=== PATIENT | female | born 1935 | race Caucasian/White ===

== ENCOUNTER 2019-12-13 13:48 | Observation (INO) ==
[2019-12-13] MEDS ORDERED: METHYLPREDNISOLONE SOD SUCC/PF 125 MG/2 ML VIAL IV ONE (16:26)
[2019-12-13] MEDS ORDERED: ENOXAPARIN SODIUM 40 MG/0.4 ML SYRG SC SCH (16:30)
--- NOTE | 2019-12-13 17:08 | HP ---
Chief Complaint - Chief Complaint Date of Service: 12/13/19 Time of Service: 17:08 Chief Complaint: COUGH AND SHORTNESS OF BREATH FOR A COUPLE OF DAYS History of Present Illness: 84 year old F with PMHX of HTN, HLD, and Hypothyroidism presents to clinic as sick visit for SOB, cough, congestion, states feeling something is heavy on her chest. PCP: Dr. Yeager. Patients SPO2: 965 on RA with audible wheezing, remaining VSS. STAT Labs, CXR, EKG and Cardiac Panel completed and Largely unremarkable. Flu Swab Negative. Administered 2 breathing treatments of Duo-Neb in clinic with minimal improvement. Patient denies any h/o of COPD or Asthma, advised patient will be admitting for Acute Exacerbation of Asthma. Medical History (Last Reviewed 12/13/19 @ 17:10 by Cesar Holley RN) Urinary bladder incontinence (Chronic) Loose stools (Acute) Nausea (Acute) Major depressive disorder (Chronic) Hypersomnolence (Acute) Bilateral sacroiliitis (Chronic) Fatigue (Chronic) Anxiety and depression (Acute) CRF (chronic renal failure) (Chronic) GFR 55 Impaired fasting glucose (Chronic) Onset Date: ~2004 Hypothyroid (Chronic) Onset Date: ~1969 Essential hypertension (Chronic) Onset Date: ~2001 Hyperlipidemia (Chronic) Onset Date: Unknown Hearing loss Onset Date: Unknown Incomplete bladder emptying Onset Date: ~2016 Sleep apnea Onset Date: ~2006 Tinnitus Onset Date: ~2003 Urge incontinence of urine Onset Date: ~2016 Atrophic vaginitis Onset Date: ~11/24/16 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 Herpes zoster Onset Date: ~01/2008 left arm History of radiation therapy Onset Date: Unknown Uterovaginal prolapse, incomplete Onset Date: ~2016 Surgical History: Surgical History (Last Reviewed 12/13/19 @ 17:10 by Cesar Holley RN) History of bladder surgery 2018 stimulator put in by dr riley History of breast biopsy Onset Date: ~1965 pt states she has had several breast biopsies History of colonoscopy Onset Date: ~2008 Peasley-diverticulosis History of surgical removal of skin lesion Onset Date: ~04/2014 scalp-Dr Koenig History of tonsillectomy Onset Date: Unknown Hx laparoscopic cholecystectomy Onset Date: ~2004 Family History: Family History (Last Reviewed 12/13/19 @ 17:10 by Cesar Holley RN) Brother Diabetes type II Father , age 55- DM, heart disease, [place] Diabetes Heart disease Myocardial infarction Mother Hypoglycemia Arthritis Social History: (Last Reviewed 12/13/19 @ 17:10 by Cesar Holley RN) Social History: Marital status: / household members: none current occupational status: retired current occupation: retired Highest education level completed: high school graduate Service: No Tobacco: Smoking Status: Never smoker Alcohol: alcohol intake: never Substance Use: substance use type: does not use Dietary Habits: caffeine: Yes caffeine comment: somedays Type: coffee Review Of Systems (GEN) - Review of Systems Generalized/Overall Review: Present: Weakness. Absent: Chills, Fever EENTM: Present: No Symptoms Reported Respiratory: Present: Cough, Shortness of Breath, Stridor. Absent: Orthopnea, Wheezing Cardiac: Absent: Chest Pain, Edema, Palpitations, Syncope Abdominal: Absent: Nausea, Vomiting, Abdominal Pain Genitourinary: Present: No Symptoms Reported Musculoskeletal: Absent: Joint Pain, Joint Swelling Neurological: Present: Weakness Skin: Present: No Symptoms Reported Endocrine: Present: No Symptoms Reported Allergies/Adverse Reactions: Allergies Allergy/AdvReac Type Severity Reaction Status Date / Time ciprofloxacin [From Cipro] AdvReac foot and Verified 12/13/19 17:10 joint pain Home Medications: HOME MEDICATIONS aspirin 81 mg tablet,delayed release 81 mg PO HS 04/23/18 [Last Taken Unknown] multivitamin 1 tab PO DAILY 04/23/18 [Last Taken Unknown] Durable Medical Equipment See Dose Instructions .ROUTE .MEDSUPPLY #1 ea 10/25/18 [Last Taken Unknown] Durable Medical Equipment See Dose Instructions .ROUTE .MEDSUPPLY #1 ea 05/02/19 [Last Taken Unknown] Durable Medical Equipment See Dose Instructions .ROUTE .MEDSUPPLY #1 ea 05/28/19 [Last Taken Unknown] Durable Medical Equipment See Dose Instructions .ROUTE .MEDSUPPLY #1 ea 05/30/19 [Last Taken Unknown] levothyroxine 100 mcg capsule 100 mcg PO DAILY #90 cap 08/12/19 [Last Taken Unk nown] calcium carbonate-vitamin D3 600 mg (1,500 mg)-400 unit capsule 1 cap PO BID cap 08/16/19 [Last Taken Unknown] Losartan Potassium 50 mg PO HS 12/13/19 [Last Taken Unknown] Sertraline HCl [Zoloft] 1 tab PO HS 12/13/19 [Last Taken Unknown] metFORMIN HCL [Metformin HCl] 250 mg PO DAILY 12/13/19 [Last Taken Unknown] Exam - Exam Constitutional: Present: Alert, Oriented x3, Cooperative, Acute distress ENT Exam: Present: hearing grossly normal Eye Exam: bilateral eye: normal inspection, EOMI Neck: Present: non-tender, full range of motion Back Exam: Present: normal inspection Breasts: Present: Exam deferred Respiratory: Present: chest non-tender, respiratory distress, wheezing, expiration (prolonged), inspiration Cardiovascular/Chest: Present: normal peripheral pulses, regular rate, rhythm Peripheral Pulses: dorsalis-pedis (R): 2+, dorsalis-pedis (L): 2+ Abdomen: Present: Normal bowel sounds, soft, nontender, nondistended /Rectal: Present: Exam deferred Extremity: Present: normal range of motion, non-tender, normal inspection Skin Exam: Present: warm/dry Neurologic: Present: alert, oriented x 3 Appearance: Present: appropriate appearance, appropriate insight Eye contact: Present: cooperative, good eye contact Thoughts: Present: normal thought pattern, no apparent hallucination Assessment/Plan - Procedures Results: Assessment/Plan 84 year old F admitted for reactive airway disease. - Alb neb 2.5 ml Q4H - Budenoside neb BID - Perfomist neb BID - Solumedrol 125mg IV X 1 - Prednisone 40 mg PO X 4 Days start in AM - VSS q4h FEN: Heart Healthy Diet DVT PPX: Enoxaparin 40 mg SC CODE STATUS: FULL CODE Disposition: - Checked patient out to Dr. Cardoza - Anticipate Discharge within 24 hours - Will notify PCP of admission on Monday, he was out for Long-Term Rounds. - Assessment/Plan (1) Acute asthma exacerbation Problem: Acute Qualifiers: Asthma severity: mild Asthma persistence: persistent Qualified Code(s): J45.31 - Mild persistent asthma with (acute) exacerbation
[2019-12-13] MEDS ORDERED: ALBUTEROL SULFATE 2.5 MG/0.5 ML VIAL.NEB IH SCH (17:15)
[2019-12-13] MEDS: ALBUTEROL SULFATE 2.5 MG/0.5 ML VIAL.NEB IH SCH ×2 (18:19→23:46)
[2019-12-13] MEDS: FORMOTEROL FUMARATE 20 MCG/2 ML VIAL IH SCH (18:19)
[2019-12-13] MEDS: BUDESONIDE 0.25 MG/2 ML VIAL.NEB IH SCH (18:20)
[2019-12-13] MEDS ORDERED: ASPIRIN 81 MG TAB.CHEW ONE (21:51)
[2019-12-13] MEDS ORDERED: SERTRALINE HCL 50 MG TABLET ONE (21:52)
[2019-12-13] MEDS ORDERED: ASPIRIN 81 MG TABLET.DR ONE (21:57)
[2019-12-13] MEDS ORDERED: LOSARTAN POTASSIUM 50 MG TABLET PO SCH (22:00)
[2019-12-14] MEDS: ALBUTEROL SULFATE 2.5 MG/0.5 ML VIAL.NEB IH SCH ×3 (03:11→10:15)
[2019-12-14] MEDS: FORMOTEROL FUMARATE 20 MCG/2 ML VIAL IH SCH (06:20)
[2019-12-14] MEDS: BUDESONIDE 0.25 MG/2 ML VIAL.NEB IH SCH (06:21)
[2019-12-14] MEDS ORDERED: LEVOTHYROXINE SODIUM 100 MCG TABLET PO SCH (07:00)
[2019-12-14] MEDS ORDERED: INSULIN ASPART 100 UNITS/ML VIAL SC SCH (07:00)
[2019-12-14] MEDS ORDERED: INSULIN LISPRO 100 UNITS/ML VIAL SC SCH (07:30)
[2019-12-14] MEDS ORDERED: CALCIUM CARBONATE/VITAMIN D3 1 TAB TABLET PO SCH (09:00)
[2019-12-14] MEDS ORDERED: predniSONE 20 MG TABLET PO SCH (09:00)
[2019-12-14] MEDS ORDERED: MULTIVITAMINS 1 CAP CAPSULE PO SCH (09:00)
--- NOTE | 2019-12-14 10:09 | DS ---
(1) Acute asthma exacerbation Problem: Acute Qualifiers: Asthma severity: mild Asthma persistence: persistent Qualified Code(s): J45.31 - Mild persistent asthma with (acute) exacerbation (2) Anxiety and depression Problem: Chronic (3) JEN (obstructive sleep apnea) Problem: Chronic (4) CRF (chronic renal failure) Problem: Chronic Qualifiers: Chronic kidney disease stage: stage 3 (moderate) Qualified Code(s): N18.3 - Chronic kidney disease, stage 3 (moderate) (5) Essential hypertension Problem: Chronic (6) Hyperlipidemia Problem: Chronic Qualifiers: Hyperlipidemia type: mixed hyperlipidemia Qualified Code(s): E78.2 - Mixed hyperlipidemia (7) Hypothyroid Problem: Chronic Qualifiers: Hypothyroidism type: acquired Qualified Code(s): E03.9 - Hypothyroidism, unspecified Date of Discharge:: 12/14/19 Hospital Course: Jeanette Castro is an 84 year old F with PMHX of HTN, HLD, and Hypothyroidism presented to clinic of Dr. Blevins yesterday, 12/13/2019 for a sick visitSOB, cough, congestion, states feeling something is heavy on her chest. She doctors with Dr. Magallon but he was out on the [facility] rounds. The patients SPO2: 96% on RA but her with audible wheezing. remaining VSS. She had were STAT Labs, CXR, EKG and Cardiac Panel completed and Largely were unremarkable. Her flu Swab was day negative. They administered 2 breathing treatments of Duo-Neb in clinic with minimal improvement. The patient denied any h/o of COPD or Asthma. She was advised admission for Acute Exacerbation of Asthma. She had IV Solu-Medrol and breathing treatments. Clinically she is feeling better today and oxygenating well. She was walking with physical therapy in the hallway. She she will be discharged today on DuoNeb nebulizer with incentive spirometry every 1 hour using Deandra. We will continue her on prednisone as well as her inhalers. We will add oral antibiotic. She will follow-up with her PCP next week. Procedures Performed: none Results and Findings: Lab Pending Results 12/13/19 18:04: Influenza Type A Ag Negative, Influenza Type B Ag Negative 12/13/19 18:04: Group A Strep Rapid Negative Discharge Location: Home Disposition: Home self-care Condition: Stable Discharge Activity: Activity as tolerated Discharge Diet: Consistent carbs Referrals: Mike Magallon DO [Primary Care Provider] - Additional Patient Instructions (free text): Follow up with PCP next week. Complete Home Medications List: Complete Home Medication List: aspirin 81 mg tablet,delayed release 81 mg PO HS 04/23/18 multivitamin 1 tab PO DAILY 04/23/18 Durable Medical Equipment See Dose Instructions .ROUTE .MEDSUPPLY #1 ea 10/25/18 Durable Medical Equipment See Dose Instructions .ROUTE .MEDSUPPLY #1 ea 05/02/19 Durable Medical Equipment See Dose Instructions .ROUTE .MEDSUPPLY #1 ea 05/28/19 Durable Medical Equipment See Dose Instructions .ROUTE .MEDSUPPLY #1 ea 05/30/19 levothyroxine 100 mcg capsule 100 mcg PO DAILY #90 cap 08/12/19 calcium carbonate-vitamin D3 600 mg (1,500 mg)-400 unit capsule 1 cap PO BID cap 08/16/19 Losartan Potassium 50 mg PO HS 12/13/19 Sertraline HCl [Zoloft] 1 tab PO HS 12/13/19 metFORMIN HCL [Metformin HCl] 250 mg PO DAILY 12/13/19
[2019-12-14 12:30] VITALS: BP 140/82
[2019-12-14] MEDS ORDERED: SERTRALINE HCL 50 MG TABLET PO SCH (22:00)
[2019-12-14] MEDS ORDERED: ASPIRIN 81 MG TABLET.DR PO SCH (22:00)
== END 2019-12-14 14:27 | disposition home or self-care (01) ==
LOC: CCFAL → MS 13:48 → RT 13:48 → MS 16:24
PROVIDERS: ADMIT Family Medicine; ATTEND Family Medicine
DX: F41.8 Other specified anxiety disorders; G47.33 Obstructive sleep apnea (adult) (pediatric); N18.3 Chronic kidney disease, stage 3 (moderate); J45.31 Mild persistent asthma with (acute) exacerbation; I12.9 Hypertensive chronic kidney disease with stage 1 through stage 4 chronic kidney disease, or unspecified chronic kidney disease; E78.2 Mixed hyperlipidemia; E03.9 Hypothyroidism, unspecified
CPT/HCPCS: 36415; 70360; 71020; 71046; 80053; 82550; 82553; 84484; 85025; 87081; 87400; 87430; 87449; 87804; 93005; 94640; 94660; 94664; 96374; 97161; G0378; G0379; J7620